=== PATIENT | male | born 1970 | race Caucasian/White ===

== ENCOUNTER → 2016-10-30 | Outpatient (CLI) | payer MEDICARE, MEDICAID | LOC: RAD 07:34 | PROVIDERS: ATTEND Specialist | DX: I26.90 Septic pulmonary embolism without acute cor pulmonale (principal); R91.1 Solitary pulmonary nodule; N28.0 Ischemia and infarction of kidney | CPT/HCPCS: 71260; 74160 ==

== ENCOUNTER 2016-12-24 04:47 | Emergency (ER) | payer MEDICARE, MEDICAID ==
[2016-12-24] MEDS ORDERED: DIPHENHYDRAMINE HCL 25 MG CAPSULE PO ONE ×2 (07:30→11:17)
--- NOTE | 2016-12-24 07:32 | ER Document Report ---
ED General - General Chief Complaint: Skin Problem Stated Complaint: RASH Mode of Arrival: Ambulatory Information source: Patient Notes: Patient presents to the emergency department with concerns of skin infection. Patient reports approximately one month ago he started itching. Patient has multiple insect bites to his bilateral arms. He reports last week when he was painting he hit his face on the side of the house with abrasion to right side of his nose. He reports he thought the area was healing but for the past three days it has become swollen, turned red and reports when he takes a shower the scab falls off and he notes pus coming out. He denies fever, vomiting, diarrhea but reports he feels dizzy at times and is very emotional, cries easily. He reports he has not taken any benadryl for his insect bites. He has been cleaning his facial abrasion with peroxide. TRAVEL OUTSIDE OF THE [place] IN LAST 30 DAYS: No - HPI Onset: Other - over a month- bilateral arms one week- facial abrasion Onset/Duration: Persistent Quality of pain: Achy Pain Level: 4 - itchy, facial pain Associated symptoms: None Exacerbated by: Denies Relieved by: Denies Similar symptoms previously: No Recently seen / treated by doctor: No - Related Data Allergies/Adverse Reactions: No Known Allergies Allergy (Verified 12/24/16 04:57) Past Medical History - General Information source: Patient - Social History Smoking Status: Former Smoker Cigarette use (# per day): No Frequency of alcohol use: None Drug Abuse: None 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 Schizophrenia in his son but no one else in the family. - Past Medical History Cardiac Medical History: Reports: Hx Hypertension - Hypertension is untreated, patient does not have a PCP., Hx Pulmonary Embolism - Septic Denies: Hx Congestive Heart Failure, Hx Heart Attack, Hx Hypercholesterolemia Pulmonary Medical History: Denies: Hx Asthma, Hx COPD Endocrine Medical History: Denies: Hx Diabetes Mellitus Type 1, Hx Diabetes Mellitus Type 2, Hx Hyperthyroidism, Hx Hypothyroidism Renal/ Medical History: Denies: Hx Peritoneal Dialysis GI Medical History: Denies: Hx Cirrhosis, Hx Gastroesophageal Reflux Disease, Hx Hepatitis Musculoskeltal Medical History: Reports Hx Arthritis Psychiatric Medical History: Denies: Hx Depression Infectious Medical History: Denies: Hx Hepatitis Past Surgical History: Reports: Hx Herniorrhaphy - Hernia repair and hydrocele repair at age of 9., Hx Orthopedic Surgery - back surgery 2006 Review of Systems - Review of Systems Notes: Review HPI for review of systems., All other systems negative Physical Exam - Vital signs Vitals: Temp Pulse Resp BP Pulse Ox 99 F 67 19 159/65 H 98 12/24/16 04:52 12/24/16 04:52 12/24/16 04:52 12/24/16 04:52 12/24/16 04:52 - Notes Notes: PHYSICAL EXAMINATION: GENERAL: Nontoxic looking HEAD: Atraumatic, normocephalic. EYES: Pupils equal round and reactive to light, extraocular movements intact, sclera anicteric, conjunctiva are normal. ENT: nares patent, oropharynx clear without exudates. Moist mucous membranes. NECK: Normal range of motion, supple without lymphadenopathy LUNGS: CTAB and equal. No wheezes rales or rhonchi. HEART: Regular rate and rhythm without murmurs ABDOMEN: Soft, no tenderness. No guarding, no rebound EXTREMITIES: Normal range of motion, no pitting edema. No cyanosis. NEUROLOGICAL: Cranial nerves grossly intact. Normal sensory/motor exams. PSYCH: Normal mood, normal affect. SKIN: Warm, Dry, erythema noted to right side of nare, cheek, periorbital, abrasion to right side nare, multiple flat erythemic areas to his forehead in various stages of healing, no oozing multiple flat insect bites to bilateral arms. some with scabs No macule/papules to his trunk or legs, palms, feet Course - Re-evaluation Re-evalutation: 12/24/16 10:29 no leukocytosis, CT superficial cellulitis. No drainage or oozing from sites- unable to obtain a wound culture. Suspect cellulitis staph infection from insect bites to his arms and spread. Pt will be treated with IV clindamycin discharged home with antibiotics, prednisone, pain medication. Discussed application of bactroban ointment with patient. Pt was also instructed on the importance of not itching the sites. Patient was instructed to keep his hands clean the sites clean. Patient was instructed to return to the emergency department for worsening condition and he verbalized understanding to all instructions - Vital Signs Vital signs: Temp Pulse Resp BP Pulse Ox 98.3 F 72 20 143/71 H 100 12/24/16 12:17 12/24/16 12:17 12/24/16 12:17 12/24/16 12:17 12/24/16 12:17 - Laboratory Result Diagrams: 12/24/16 08:15 12/24/16 08:15 Laboratory results interpreted by me: 12/24/16 12/24/16 12/24/16 08:15 08:15 08:40 Hgb 13.4 L RDW 15.6 H Sodium 146.0 H Urine Blood SMALL H - Diagnostic Test Radiology reviewed: Image reviewed, Reports reviewed - IMPRESSION: Superficial facial cellulitis. Discharge - Discharge Clinical Impression: CELLULITIS, Elevated blood pressure reading Insect bites Qualifiers: Encounter type: initial encounter Qualified Code(s): W57.XXXA - Bitten or stung by nonvenomous insect and other nonvenomous arthropods, initial encounter Condition: Stable Disposition: HOME, SELF-CARE Instructions: Cellulitis ([facility]), Cephalexin ([facility]), Trimethoprim-Sulfa ([facility]), Oral Narcotic Medication ([facility]), Use of Diphenhydramine, Steroid Medication, Insect Bites ([facility]), Manufacturing Analyst Additional Instructions: *You have been treated for cellulitis, insect bites, elevated blood pressure reading *Take medication as prescribed *Monitor your skin for signs of increasing infection such as increasing pain, redness, swelling, warmth *Keep your face clean *Apply bactroban to areas 3 times a day *Avoid itching, take benadryl as indicated *Follow up with a fuel yard operator for evaluation within one week, call for appointment *Follow up with your primary care provider within one week for recheck *If not looking any better within 2 days or looking worse return to the Emergency Department *Return to ED for signs of increasing infection, worsening condition, changes, needs Prescriptions: Cephalexin Monohydrate [Keflex 250 Mg Capsule] 250 mg PO QID #20 capsule Hydrocodone/Acetaminophen [Bryan 5-325 Tablet] 1 each PO QID #15 tablet Prednisone [Deltasone 10 mg Tablet] 10 mg PO ASDIR PRN #21 tablet PRN Reason: Sulfamethoxazole/Trimethoprim [Bactrim Ds Tablet] 1 each PO BID #20 tablet Forms: Elevated Blood Pressure Referrals: JONATHAN BENDER MD [Primary Care Provider] - Follow up in 1 week
[2016-12-24 08:53] LABS: ABSOLUTE EOSINOPHILS # (AUTO) 0.2 10^3/uL (0.0-0.6); ABSOLUTE LYMPHOCYTES (AUTO) 2.5 10^3/uL (0.5-4.7); ABSOLUTE MONOCYTES (AUTO) 0.4 10^3/uL (0.1-1.4); ABSOLUTE NEUT (AUTO) 4.8 10^3/uL (1.7-8.2); BASOPHILS % (AUTO) 0.4 % (0-2); HEMATOCRIT 38.4 % (37.9-51.0); HEMOGLOBIN 13.4 g/dL (13.5-17.0); HGB HCT DIFFERENCE 1.8; LYMPHOCYTES % (AUTO) 31.5 % (13-45); MEAN CORPUSCULAR HGB CONC 34.8 g/dL (32.0-36.0); MEAN CORPUSCULAR VOLUME 80 fl (80-97); MONOCYTES % (AUTO) 5.3 % (3-13); RED BLOOD COUNT 4.78 10^6/uL (4.35-5.55); RED CELL DISTRIBUTION WIDTH 15.6 % (11.5-14.0); SEGMENTED NEUTROPHILS % (AUTO) 60.8 % (42-78); WHITE BLOOD COUNT 7.9 10^3/uL (4.0-10.5)
[2016-12-24 09:12] LABS: ALANINE AMINOTRANSFERASE 37 U/L (21-72); ALKALINE PHOSPHATASE 64 U/L (38-126); ANION GAP 14 (5-19); ASPARTATE AMINO TRANSFERASE 22 U/L (17-59); BILIRUBIN,DIRECT 0.1 mg/dL (0.0-0.4); BILIRUBIN,TOTAL 0.7 mg/dL (0.2-1.3); BLOOD UREA NITROGEN 12 mg/dL (7-20); CALCIUM 9.9 mg/dL (8.4-10.2); CARBON DIOXIDE 28 mmol/L (22-30); CHLORIDE 104 mmol/L (98-107); CREATININE RESULT 0.65 mg/dL (0.52-1.25); GLUCOSE 102 mg/dL (75-110); POTASSIUM 4.2 mmol/L (3.6-5.0); TOTAL PROTEIN 7.6 g/dL (6.3-8.2)
[2016-12-24 09:46] LABS: APPEARANCE,URINE CLEAR; BILIRUBIN,URINE NEGATIVE (NEGATIVE); GLUCOSE, URINE NEGATIVE (NEGATIVE); KETONES,URINE NEGATIVE (NEGATIVE); LEUKOCYTE ESTERASE,URINE NEGATIVE (NEGATIVE); NITRITE,URINE NEGATIVE (NEGATIVE); PROTEIN,URINE NEGATIVE (NEGATIVE); URINE SPECIFIC GRAVITY 1.012; UROBILINOGEN,URINE NEGATIVE mg/dL (<2.0)
[2016-12-24] MEDS ORDERED: CLINDAMYCIN 600 MG/D5W RTU 50 ML IV ONE (10:26)
[2016-12-24] MEDS ORDERED: MUPIROCIN 2% OINTMENT 22 GM TP ONE (11:25)
[2016-12-24 12:20] VITALS: BP 143/71
== END 2016-12-24 12:17 | disposition home or self-care (01) ==
LOC: ER 04:47
DX: S00.31XA Abrasion of nose, initial encounter (principal); L03.211 Cellulitis of face; W22.09XA Striking against other stationary object, initial encounter; Y93.H9 Activity, other involving exterior property and land maintenance, building and construction; Y92.009 Unspecified place in unspecified non-institutional (private) residence as the place of occurrence of the external cause; S40.862A Insect bite (nonvenomous) of left upper arm, initial encounter; S40.861A Insect bite (nonvenomous) of right upper arm, initial encounter; W57.XXXA Bitten or stung by nonvenomous insect and other nonvenomous arthropods, initial encounter; R42 Dizziness and giddiness; I10 Essential (primary) hypertension; Z86.711 Personal history of pulmonary embolism
CPT/HCPCS: 99284; 96365; 36415; 87040; 87070; 87205; 85025; 87077; 80053; 81001; 87186; 70487; A9270 ×2; J3490

== ENCOUNTER 2016-12-28 11:04 | Emergency (ER) | payer MEDICARE, MEDICAID ==
[2016-12-28 11:14] VITALS: BP 133/74
[2016-12-28 12:24] LABS: ABSOLUTE LYMPHOCYTES (AUTO) 2.4 10^3/uL (0.5-4.7); ABSOLUTE MONOCYTES (AUTO) 0.3 10^3/uL (0.1-1.4); ABSOLUTE NEUT (AUTO) 6.9 10^3/uL (1.7-8.2); BASOPHILS % (AUTO) 0.3 % (0-2); EOSINOPHILS % (AUTO) 0.4 % (0-6); HEMATOCRIT 37.7 % (37.9-51.0); HGB HCT DIFFERENCE 1.3; LYMPHOCYTES % (AUTO) 24.6 % (13-45); MEAN CORPUSCULAR HEMOGLOBIN 27.9 pg (27.0-33.4); MEAN CORPUSCULAR HGB CONC 34.6 g/dL (32.0-36.0); MEAN CORPUSCULAR VOLUME 81 fl (80-97); MONOCYTES % (AUTO) 3.3 % (3-13); RED BLOOD COUNT 4.67 10^6/uL (4.35-5.55); RED CELL DISTRIBUTION WIDTH 15.9 % (11.5-14.0); SEGMENTED NEUTROPHILS % (AUTO) 71.4 % (42-78); WHITE BLOOD COUNT 9.7 10^3/uL (4.0-10.5)
--- NOTE | 2016-12-28 13:02 | ER Document Report ---
ED General - General Chief Complaint: Abnormal Lab Results Stated Complaint: ABNORMAL LABS TRAVEL OUTSIDE OF THE [place] IN LAST 30 DAYS: No - HPI Patient complains to provider of: positive blood culture Notes: Patient coming in for days ago for saline stools face of blood cultures drawn showing one bottle positive. Patient however has not returned 4 days later patient otherwise states she's feeling better since the lastis getting better no fevers or chills no night sweats. - Related Data Allergies/Adverse Reactions: No Known Allergies Allergy (Verified 12/28/16 11:10) Past Medical History - Social History Smoking Status: Unknown if Ever Smoked Family History: CVA, Malignancy - Lung cancer and leukemia, Other - Alcoholism, dementia. Schizophrenia in his son but no one else in the family. Patient has suicidal ideation: No Patient has homicidal ideation: No - Past Medical History Cardiac Medical History: Reports: Hx Hypertension - Hypertension is untreated, patient does not have a PCP., Hx Pulmonary Embolism - Septic Denies: Hx Congestive Heart Failure, Hx Heart Attack, Hx Hypercholesterolemia Pulmonary Medical History: Denies: Hx Asthma, Hx COPD Endocrine Medical History: Denies: Hx Diabetes Mellitus Type 1, Hx Diabetes Mellitus Type 2, Hx Hyperthyroidism, Hx Hypothyroidism Renal/ Medical History: Denies: Hx Peritoneal Dialysis GI Medical History: Denies: Hx Cirrhosis, Hx Gastroesophageal Reflux Disease, Hx Hepatitis Musculoskeltal Medical History: Reports Hx Arthritis Psychiatric Medical History: Denies: Hx Depression Infectious Medical History: Denies: Hx Hepatitis Past Surgical History: Reports: Hx Herniorrhaphy - Hernia repair and hydrocele repair at age of 9., Hx Orthopedic Surgery - back surgery 2006 - Immunizations Hx Diphtheria, Pertussis, Tetanus Vaccination: No Review of Systems - Review of Systems Constitutional: Other - Return for lab results EENT: No symptoms reported Cardiovascular: No symptoms reported Respiratory: No symptoms reported Gastrointestinal: No symptoms reported Genitourinary: No symptoms reported Male Genitourinary: No symptoms reported Musculoskeletal: No symptoms reported Skin: No symptoms reported Hematologic/Lymphatic: No symptoms reported Neurological/Psychological: No symptoms reported Physical Exam - Vital signs Vitals: Temp Pulse Resp BP Pulse Ox 97.8 F 61 18 133/74 H 98 12/28/16 11:12 12/28/16 11:12 12/28/16 11:12 12/28/16 11:12 12/28/16 11:12 Interpretation: Normal - General General appearance: Appears well, Alert - HEENT Head: Normocephalic, Atraumatic Eyes: Normal Pupils: PERRL Notes: Patient with erythema to the right bridge and nose states has improved consistent with possible infection. - Respiratory Respiratory status: No respiratory distress Chest status: Nontender Breath sounds: Normal Chest palpation: Normal - Cardiovascular Rhythm: Regular Heart sounds: Normal auscultation Murmur: No - Abdominal Inspection: Normal Distension: No distension Bowel sounds: Normal Tenderness: Nontender Organomegaly: No organomegaly - Back Back: Normal, Nontender - Extremities General upper extremity: Normal inspection, Nontender, Normal color, Normal ROM , Normal temperature General lower extremity: Normal inspection, Nontender, Normal color, Normal ROM , Normal temperature, Normal weight bearing. No: Minoo's sign - Neurological Neuro grossly intact: Yes Cognition: Normal Orientation: AAOx4 [place] Coma Scale Eye Opening: Spontaneous Benji Coma Scale Verbal: Oriented [place] Coma Scale Motor: Obeys Commands Benji Coma Scale Total: 15 Speech: Normal Motor strength normal: LUE, RUE, LLE, RLE Sensory: Normal - Psychological Associated symptoms: Normal affect, Normal mood - Skin Skin Temperature: Warm Skin Moisture: Dry Skin Color: Normal Course - Re-evaluation Re-evalutation: 12/28/16 13:29 Patient's blood culture showing corynebactrim species. However patient has no signs or symptoms of bacteremia this time. CBC is negative. We will draw another set of blood cultures patient was encouraged to continue his antibiotics as it did grow out MRSA on his swab. The patient stating that the area is improving filled patient safe for discharge home. 12/28/16 13:30 - Vital Signs Vital signs: Temp Pulse Resp BP Pulse Ox 97.8 F 61 18 133/74 H 98 12/28/16 11:12 12/28/16 11:12 12/28/16 11:12 12/28/16 11:12 12/28/16 11:12 - Laboratory Result Diagrams: 12/28/16 12:00 Laboratory results interpreted by me: 12/28/16 12:00 Hgb 13.0 L Hct 37.7 L RDW 15.9 H Discharge - Discharge Clinical Impression: Cellulitis Qualifiers: Site of cellulitis: face Qualified Code(s): L03.211 - Cellulitis of face Instructions: Cellulitis ([facility]) Additional Instructions: Please continue your antibiotics as previously prescribed. Return to the ER if symptoms worsen. At this time reviewing your blood cultures I did not see any signs of bacteremia or a bloodstream infection I believe your result from one bottle out of 2 is just contamination. As that you showed no signs of severe infection. We did draw a blood count morning today which is normal. We will wait to see what her second blood culture results showed that do not see any reason to keep you in the emergency room or the hospital today. Follow-up with your primary care physician He may take the medication as prescribed for sleep Prescriptions: Doxylamine Succinate [Sleep Aid] 25 mg PO QHS #14 tablet Forms: Return to Work
== END 2016-12-28 13:10 | disposition home or self-care (01) ==
LOC: ER 11:04
DX: L03.211 Cellulitis of face (principal); R88.8 Abnormal findings in other body fluids and substances
CPT/HCPCS: 36415; 85025; 99283

== ENCOUNTER 2017-02-05 11:37 | Emergency (ER) | payer MEDICARE, MEDICAID ==
--- NOTE | 2017-02-05 13:01 | ER Document Report ---
ED Skin Rash/Insect Bite/Abscs - General Mode of Arrival: Ambulatory Information source: Patient TRAVEL OUTSIDE OF THE [place] IN LAST 30 DAYS: No <ZOE MEYERS - Last Filed: 02/07/17 16:32> <CHELY DIAZ - Last Filed: 02/10/17 06:12> - General Chief Complaint: Abscess Stated Complaint: POSSIBLE ABSCESS UNDER RIGHT ARM Time Seen by Provider: 02/05/17 12:58 Notes: 46 yo male with possible abscess under right axilla, no fever, hx absces in past and MRSA (ZOE MEYERS) - Related Data Allergies/Adverse Reactions: No Known Allergies Allergy (Verified 02/05/17 11:42) Past Medical History - General Information source: Patient - Social History Smoking Status: Current Every Day Smoker Chew tobacco use (# tins/day): No Frequency of alcohol use: None Drug Abuse: Marijuana Lives with: Family Family History: CVA, Malignancy - Lung cancer and leukemia, Other - Alcoholism, dementia. Schizophrenia in his son but no one else in the family. Patient has suicidal ideation: No Patient has homicidal ideation: No - Past Medical History Cardiac Medical History: Reports: Hx Hypertension - Hypertension is untreated, patient does not have a PCP., Hx Pulmonary Embolism - Septic Renal/ Medical History: Denies: Hx Peritoneal Dialysis Musculoskeltal Medical History: Reports Hx Arthritis Psychiatric Medical History: Reports: Hx Depression Infectious Medical History: Denies: Hx Hepatitis Past Surgical History: Reports: Hx Herniorrhaphy - Hernia repair and hydrocele repair at age of 9., Hx Orthopedic Surgery - back surgery 2006 - Immunizations Hx Diphtheria, Pertussis, Tetanus Vaccination: No <ZOE MEYERS - Last Filed: 02/07/17 16:32> Review of Systems - Review of Systems Constitutional: No symptoms reported EENT: No symptoms reported Cardiovascular: No symptoms reported Respiratory: No symptoms reported Gastrointestinal: No symptoms reported Genitourinary: No symptoms reported Male Genitourinary: No symptoms reported Musculoskeletal: No symptoms reported Skin: See HPI Hematologic/Lymphatic: No symptoms reported Neurological/Psychological: No symptoms reported <ZOE MEYERS - Last Filed: 02/07/17 16:32> Physical Exam - Vital signs Interpretation: Normal - General General appearance: Appears well, Alert - HEENT Head: Normocephalic, Atraumatic Eyes: Normal Pupils: PERRL - Respiratory Respiratory status: No respiratory distress Chest status: Nontender Breath sounds: Normal Chest palpation: Normal - Cardiovascular Rhythm: Regular Heart sounds: Normal auscultation Murmur: No - Abdominal Inspection: Normal Distension: No distension Bowel sounds: Normal Tenderness: Nontender Organomegaly: No organomegaly - Back Back: Normal, Nontender - Extremities General upper extremity: Normal inspection, Nontender, Normal color, Normal ROM , Normal temperature General lower extremity: Normal inspection, Nontender, Normal color, Normal ROM , Normal temperature, Normal weight bearing. No: Minoo's sign - Neurological Neuro grossly intact: Yes Cognition: Normal Orientation: AAOx4 Benji Coma Scale Eye Opening: Spontaneous [place] Coma Scale Verbal: Oriented [place] Coma Scale Motor: Obeys Commands Benji Coma Scale Total: 15 Speech: Normal Motor strength normal: LUE, RUE, LLE, RLE Sensory: Normal - Psychological Associated symptoms: Normal affect, Normal mood - Skin Skin Temperature: Warm Skin Moisture: Dry Skin Color: Normal Skin irregularity: Abscess - multi leasions, suspect lymph nodes also, right axilla <ZOE MEYERS - Last Filed: 02/07/17 16:32> <CHELY DIAZ - Last Filed: 02/10/17 06:12> - Vital signs Vitals: Temp Pulse Resp BP Pulse Ox 98.5 F 67 19 140/67 H 100 02/05/17 11:42 02/05/17 11:42 02/05/17 11:42 02/05/17 11:42 02/05/17 11:42 - HEENT Notes: right nose with chronic (more than 1 year) bleeding lesion. looke with magnifier and it has rolled borders, suspect basal cell cancer (ZOE MEYERS) Course - Laboratory Result Diagrams: 02/05/17 14:10 02/05/17 14:10 <ZOE MEYERS - Last Filed: 02/07/17 16:32> - Laboratory Result Diagrams: 02/05/17 14:10 02/05/17 14:10 <CHELY DIAZ - Last Filed: 02/10/17 06:12> - Re-evaluation Re-evalutation: 02/10/17 06:11 I did personally seen and examined this patient in conjunction with Zoe Melling MEMBER SERVICE REPRESENTATIVE. Patient has had multiple recurrent abscesses in this area, currently 2 areas of erythema and tenderness and fluctuance in the right axilla , agree with plan to incise and drain, the [place] drain in place and start oral antibiotics. (CHELY DIAZ) - Vital Signs Vital signs: Temp Pulse Resp BP Pulse Ox 98.5 F 81 17 130/74 H 98 02/05/17 11:42 02/05/17 17:36 02/05/17 17:36 02/05/17 17:36 02/05/17 17:36 - Laboratory Laboratory results interpreted by me: 02/05/17 02/05/17 14:10 14:10 RBC 4.15 L Hgb 12.1 L Hct 34.9 L RDW 14.4 H Eosinophils % 6.2 H Sodium 145.9 H Procedures - Incision and Drainage Right Arm Time completed: 17:09 Type: Simple Anesthetic type: 1% Lidocaine mL's of anesthetic: 8 Blade size: 11 I&D procedure: Mehnaz drain placed - in 2 smaller incision where there was pus , the larger central incision did not have any pus. Incision Method: Incision made by scalpel Amount/type of drainage: small pus, blood, right axilla 3 incisions <ZOE MEYERS - Last Filed: 02/07/17 16:32> Discharge <ZOE MEYERS - Last Filed: 02/07/17 16:32> <CHELY DIAZ - Last Filed: 02/10/17 06:12> - Discharge Clinical Impression: nose lesion probable basal cell cancer, Abscess of right axilla, Adenopathy, Folliculitis Condition: Good Disposition: HOME, SELF-CARE Instructions: Abscess ([facility]), Post Incision and Drainage, Folliculitis ([facility]), Lymphadenopathy ([facility]) Additional Instructions: Nasal Bactroban small amount each nostril twice a day for 5 days When the lesions are small but Bactroban on it 3 times a day to kill the bacteria Take the antibiotics Warm compress See the general surgeon dr. hinojosa if this persists in the right axilla Very important that she see the fur mixer operator for this possible basal cell carcinoma of the right nose, dr. ybarra Please complete the patient satisfaction survey if you get one, and return it.. If you do not receive a survey, then you can go to the [facility] website, [email or web address] and place your comments about your very good care. Thank you very much. It was a pleasure being your medical provider today. Prescriptions: Ibuprofen [Motrin 800 mg Tablet] 800 mg PO Q8HP PRN #30 tablet PRN Reason: Clindamycin HCl [Cleocin 150 mg Capsule] 300 mg PO TID #42 capsule Mupirocin [Bactroban 2% Ointment 22 gm] 1 applic TP TID #22 gm Referrals: PORTIA MARRERO MD [Primary Care Provider] - Follow up as needed GUY YBARRA DO [ACTIVE STAFF] - Follow up tomorrow (call for appointment next week) JONNY HINOJOSA MD [ACTIVE STAFF] - Follow up as needed
[2017-02-05] MEDS ORDERED: CLINDAMYCIN 600 MG/D5W RTU 50 ML IV ONE (13:11)
[2017-02-05] MEDS ORDERED: IBUPROFEN 800 MG TABLET PO ONE (13:11)
[2017-02-05 14:24] LABS: ABSOLUTE BASOPHILS # (AUTO) 0.1 10^3/uL (0.0-0.2); ABSOLUTE EOSINOPHILS # (AUTO) 0.4 10^3/uL (0.0-0.6); ABSOLUTE LYMPHOCYTES (AUTO) 2.8 10^3/uL (0.5-4.7); ABSOLUTE MONOCYTES (AUTO) 0.3 10^3/uL (0.1-1.4); ABSOLUTE NEUT (AUTO) 3.2 10^3/uL (1.7-8.2); BASOPHILS % (AUTO) 0.8 % (0-2); EOSINOPHILS % (AUTO) 6.2 % (0-6); HEMATOCRIT 34.9 % (37.9-51.0); HEMOGLOBIN 12.1 g/dL (13.5-17.0); HGB HCT DIFFERENCE 1.4; LYMPHOCYTES % (AUTO) 41.5 % (13-45); MEAN CORPUSCULAR HEMOGLOBIN 29.1 pg (27.0-33.4); MEAN CORPUSCULAR HGB CONC 34.6 g/dL (32.0-36.0); MEAN CORPUSCULAR VOLUME 84 fl (80-97); MONOCYTES % (AUTO) 4.4 % (3-13); RED BLOOD COUNT 4.15 10^6/uL (4.35-5.55); RED CELL DISTRIBUTION WIDTH 14.4 % (11.5-14.0); SEGMENTED NEUTROPHILS % (AUTO) 47.1 % (42-78); WHITE BLOOD COUNT 6.7 10^3/uL (4.0-10.5)
[2017-02-05 14:45] LABS: ALANINE AMINOTRANSFERASE 26 U/L (21-72); ALBUMIN 3.9 g/dL (3.5-5.0); ALKALINE PHOSPHATASE 57 U/L (38-126); ANION GAP 12 (5-19); ASPARTATE AMINO TRANSFERASE 37 U/L (17-59); BILIRUBIN,DIRECT 0.4 mg/dL (0.0-0.4); BILIRUBIN,TOTAL 0.5 mg/dL (0.2-1.3); BLOOD UREA NITROGEN 11 mg/dL (7-20); CALCIUM 9.2 mg/dL (8.4-10.2); CARBON DIOXIDE 27 mmol/L (22-30); CHLORIDE 107 mmol/L (98-107); CREATININE RESULT 0.81 mg/dL (0.52-1.25); GLUCOSE 90 mg/dL (75-110); POTASSIUM 3.6 mmol/L (3.6-5.0); SODIUM 145.9 mmol/L (137-145); TOTAL PROTEIN 7.1 g/dL (6.3-8.2)
[2017-02-05] MEDS ORDERED: LIDOCAINE 4%/TETRACAINE 0.5%/EPI 0.18% 5 ML TOPICAL SOLN TOP ONE (15:59)
[2017-02-05] MEDS ORDERED: LIDOCAINE 1% INJ (10 MG/ML) 10 ML MDV INJ ONE (17:10)
[2017-02-05] MEDS ORDERED: LIDOCAINE 1% INJ-PF (10 MG/ML) 30 ML SDV INJ ONE (17:11)
[2017-02-05] MEDS ORDERED: LIDOCAINE 1% INJ-PF (10 MG/ML) 30 ML SDV ONE (17:14)
[2017-02-05 17:37] VITALS: BP 130/74
== END 2017-02-05 17:36 | disposition home or self-care (01) ==
LOC: ER 11:37
PROC: 0H9BXZZ Drainage of Right Upper Arm Skin, External Approach (ICD-10-PCS; principal; 2017-02-05)
DX: L02.411 Cutaneous abscess of right axilla (principal); L98.9 Disorder of the skin and subcutaneous tissue, unspecified; L73.9 Follicular disorder, unspecified; R59.9 Enlarged lymph nodes, unspecified; F17.200 Nicotine dependence, unspecified, uncomplicated; Z86.14 Personal history of Methicillin resistant Staphylococcus aureus infection; Z86.711 Personal history of pulmonary embolism
CPT/HCPCS: 99284; 36415; 85025; 80053; 76881; 10060; A9270; J3490

== ENCOUNTER 2017-05-17 10:24 | Emergency (ER) | payer MEDICARE, MEDICAID ==
[2017-05-17 10:40] VITALS: BP 139/72
[2017-05-17] MEDS ORDERED: LIDOCAINE 1% INJ-PF (10 MG/ML) 30 ML SDV INJ ONE (10:43)
--- NOTE | 2017-05-17 10:48 | ER Document Report ---
ED General - General Chief Complaint: Skin Problem Stated Complaint: POSSIBLE SPIDER BITE Time Seen by Provider: 05/17/17 10:41 Mode of Arrival: Ambulatory Information source: Patient Notes: 46-year-old male presents with concerns for spider bites to the right anterior thigh. Patient notes symptoms have been ongoing now for 2-3 days initially started as a small pimple but is now gotten larger, patient was able to squeeze pus out of it. Patient does not remember seeing a spider bite him. He admits to fevers admits area of redness Patient denies any previous similar episodes TRAVEL OUTSIDE OF THE [place] IN LAST 30 DAYS: No - HPI Onset: Other Onset/Duration: Persistent Quality of pain: Sharp Severity: Moderate Pain Level: 3 Associated symptoms: None Exacerbated by: Movement, Other - Touch Relieved by: Denies Similar symptoms previously: No Recently seen / treated by doctor: No - Related Data Allergies/Adverse Reactions: No Known Allergies Allergy (Verified 05/17/17 10:37) Past Medical History - Social History Smoking Status: Current Every Day Smoker Cigarette use (# per day): Yes Chew tobacco use (# tins/day): No Smoking Education Provided: No Frequency of alcohol use: Occasional Drug Abuse: None Family History: CVA, Malignancy - Lung cancer and leukemia, Other - Alcoholism, dementia. Schizophrenia in his son but no one else in the family. - Past Medical History Cardiac Medical History: Reports: Hx Hypertension - Hypertension is untreated, patient does not have a PCP., Hx Pulmonary Embolism - Septic Denies: Hx Congestive Heart Failure, Hx Heart Attack, Hx Hypercholesterolemia Pulmonary Medical History: Denies: Hx Asthma, Hx COPD Endocrine Medical History: Denies: Hx Diabetes Mellitus Type 1, Hx Diabetes Mellitus Type 2, Hx Hyperthyroidism, Hx Hypothyroidism Renal/ Medical History: Denies: Hx Peritoneal Dialysis GI Medical History: Denies: Hx Cirrhosis, Hx Gastroesophageal Reflux Disease, Hx Hepatitis Musculoskeltal Medical History: Reports Hx Arthritis Psychiatric Medical History: Reports: Hx Depression Infectious Medical History: Denies: Hx Hepatitis Past Surgical History: Reports: Hx Herniorrhaphy - Hernia repair and hydrocele repair at age of 9., Hx Orthopedic Surgery - back surgery 2006 - Immunizations Hx Diphtheria, Pertussis, Tetanus Vaccination: No Review of Systems - Review of Systems Notes: REVIEW OF SYSTEMS: CONSTITUTIONAL : Denies fever, chills, or sweats. Denies recent illness. EENT: Denies eye, ear, throat, or mouth pain or symptoms. Denies nasal or sinus congestion or discharge. Denies throat, tongue, or mouth swelling or difficulty swallowing. CARDIOVASCULAR: Denies chest pain. Denies palpitations or racing or irregular heart beat. Denies ankle edema. RESPIRATORY: Denies cough, cold, or chest congestion. Denies shortness of breath, difficulty breathing, or wheezing. GASTROINTESTINAL: Denies abdominal pain or distention. Denies nausea, vomiting , or diarrhea. Denies blood in vomitus, stools, or per rectum. Denies black, tarry stools. Denies constipation. GENITOURINARY: Denies difficulty urinating, painful urination, burning, frequency, blood in urine, or discharge. MUSCULOSKELETAL: Denies back or neck pain or stiffness. Denies joint pain or swelling. SKIN: Admits to right anterior thigh pain HEMATOLOGIC : Denies easy bruising or bleeding. LYMPHATIC: Denies swollen, enlarged glands. NEUROLOGICAL: Denies confusion or altered mental status. Denies passing out or loss of consciousness. Denies dizziness or lightheadedness. Denies headache. Denies weakness or paralysis or loss of use of either side. Denies problems with gait or speech. Denies sensory loss, numbness, or tingling. Denies seizures. PSYCHIATRIC: Denies anxiety or stress. Denies depression, suicidal ideation, or homicidal ideation. ALL OTHER SYSTEMS REVIEWED AND NEGATIVE. Dictation was performed using [employer] voice recognition software PHYSICAL EXAMINATION: GENERAL: Well-appearing, well-nourished and in no acute distress. HEAD: Atraumatic, normocephalic. EYES: Pupils equal round and reactive to light, extraocular movements intact, sclera anicteric, conjunctiva are normal. ENT: Nares patent, oropharynx clear without exudates. Moist mucous membranes. NECK: Normal range of motion, supple without lymphadenopathy LUNGS: Breath sounds clear to auscultation bilaterally and equal. No wheezes rales or rhonchi. HEART: Regular rate and rhythm without murmurs ABDOMEN: Soft, nontender, nondistended abdomen. No guarding, no rebound. No masses appreciated. Musculoskeletal: Normal range of motion, no pitting or edema. No cyanosis. NEUROLOGICAL: Cranial nerves grossly intact. Normal speech, normal gait. Normal sensory, motor exams PSYCH: Normal mood, normal affect. SKIN: 3x3 cm fluctuance of the right anterior thigh with area of cellulitis 5x8 cm Physical Exam - Vital signs Vitals: Temp Pulse Resp BP Pulse Ox 98.7 F 61 18 139/72 H 98 05/17/17 10:37 05/17/17 10:37 05/17/17 10:37 05/17/17 10:37 05/17/17 10:37 Course - Re-evaluation Re-evalutation: 05/17/17 10:45 Patient has obvious abscess, he will be incised and drained, patient will be started on antibiotics After performing a Medical Screening Examination, I estimate there is LOW risk for OPEN FRACTURE, COMPARTMENT SYNDROME, TENDON RUPTURE, ACUTE NEUROVASCULAR INJURY, or RETAINED FOREIGN BODY, thus I consider the discharge disposition reasonable. Also, there is no evidence or peritonitis, sepsis, or toxicity. I have reevaluated this patient multiple times and no significant life threatening changes are noted. The patient and I have discussed the diagnosis and risks, and we agree with discharging home with close follow-up with the understanding that symptoms and presentations can change. We also discussed returning to the Emergency Department immediately if new or worsening symptoms occur. We have discussed the symptoms which are most concerning (e.g., changing or worsening pain, fever, numbness, weakness, cool or painful digits) that necessitate immediate return. - Vital Signs Vital signs: Temp Pulse Resp BP Pulse Ox 98.7 F 61 18 139/72 H 98 05/17/17 10:37 05/17/17 10:37 05/17/17 10:37 05/17/17 10:37 05/17/17 10:37 Procedures - Incision and Drainage Right Anterior Thigh Time completed: 10:55 Type: Simple, Single Anesthetic type: 1% Lidocaine mL's of anesthetic: 10 Blade size: 11 I&D procedure: Betadine prep applied, Sterile dressing applied Incision Method: Incision made by scalpel Amount/type of drainage: moderate amount of blood with pus Discharge - Discharge Clinical Impression: Abscess or cellulitis of thigh Leg pain, anterior Qualifiers: Laterality: right Qualified Code(s): M79.604 - Pain in right leg Condition: Stable Disposition: HOME, SELF-CARE Instructions: Abscess ([facility]), Post Incision and Drainage Additional Instructions: Follow-up in 48 hours for reevaluation or return immediately if there is any worsening symptoms or any other concerns Prescriptions: Cephalexin Monohydrate [Keflex 500 mg Capsule] 500 mg PO QID #40 capsule Hydrocodone/Acetaminophen [[place] 5-325 mg Tablet] 1 tab PO Q6 #14 tablet Sulfamethoxazole/Trimethoprim [Bactrim Ds Tablet] 2 each PO BID #40 tablet
== END 2017-05-17 11:10 | disposition home or self-care (01) ==
LOC: ER 10:24
PROC: 0H9HXZZ Drainage of Right Upper Leg Skin, External Approach (ICD-10-PCS; principal; 2017-05-17)
DX: L02.415 Cutaneous abscess of right lower limb (principal); L03.115 Cellulitis of right lower limb; I10 Essential (primary) hypertension; F17.210 Nicotine dependence, cigarettes, uncomplicated
CPT/HCPCS: 10060; 99283; 87070; 87205; 87075; 87077; 87186; J3490

== ENCOUNTER → 2017-07-18 | Outpatient (CLI) | payer MEDICARE, MEDICAID ==
[2017-07-18 09:27] LABS: ABSOLUTE BASOPHILS # (AUTO) 0.1 10^3/uL (0.0-0.2); ABSOLUTE EOSINOPHILS # (AUTO) 0.1 10^3/uL (0.0-0.6); ABSOLUTE LYMPHOCYTES (AUTO) 2.2 10^3/uL (0.5-4.7); ABSOLUTE MONOCYTES (AUTO) 0.3 10^3/uL (0.1-1.4); ABSOLUTE NEUT (AUTO) 3.6 10^3/uL (1.7-8.2); BASOPHILS % (AUTO) 0.8 % (0-2); EOSINOPHILS % (AUTO) 2.2 % (0-6); HEMATOCRIT 38.5 % (37.9-51.0); HEMOGLOBIN 13.1 g/dL (13.5-17.0); HGB HCT DIFFERENCE 0.8; LYMPHOCYTES % (AUTO) 34.6 % (13-45); MEAN CORPUSCULAR HEMOGLOBIN 25.8 pg (27.0-33.4); MEAN CORPUSCULAR HGB CONC 34.1 g/dL (32.0-36.0); MEAN CORPUSCULAR VOLUME 76 fl (80-97); MONOCYTES % (AUTO) 4.9 % (3-13); RED BLOOD COUNT 5.08 10^6/uL (4.35-5.55); RED CELL DISTRIBUTION WIDTH 15.5 % (11.5-14.0); SEGMENTED NEUTROPHILS % (AUTO) 57.5 % (42-78); WHITE BLOOD COUNT 6.3 10^3/uL (4.0-10.5)
[2017-07-18 09:54] LABS: ALANINE AMINOTRANSFERASE 32 U/L (21-72); ALBUMIN 4.9 g/dL (3.5-5.0); ALKALINE PHOSPHATASE 71 U/L (38-126); ANION GAP 14 (5-19); ASPARTATE AMINO TRANSFERASE 20 U/L (17-59); BILIRUBIN,DIRECT 0.4 mg/dL (0.0-0.4); BILIRUBIN,TOTAL 0.6 mg/dL (0.2-1.3); BLOOD UREA NITROGEN 9 mg/dL (7-20); CALCIUM 9.9 mg/dL (8.4-10.2); CARBON DIOXIDE 28 mmol/L (22-30); CHLORIDE 102 mmol/L (98-107); CHOLESTEROL 191.07 mg/dL (0-200); CREATININE RESULT 0.82 mg/dL (0.52-1.25); Direct HDL 42 mg/dL (>40); GLUCOSE 100 mg/dL (75-110); POTASSIUM 4.9 mmol/L (3.6-5.0); SODIUM 143.5 mmol/L (137-145); TOTAL PROTEIN 7.6 g/dL (6.3-8.2); TRIGLYCERIDES 237 mg/dL (<150)
[2017-07-18 10:05] LABS: DIRECT LDL 110 mg/dL (<100)
[2017-07-18 10:08] LABS: VLDL CHOLESTEROL 47.4 mg/dL (10-31)
== END ==
LOC: OD 08:52
PROVIDERS: ATTEND Family Medicine Geriatric Medicine
DX: I10 Essential (primary) hypertension (principal); I26.99 Other pulmonary embolism without acute cor pulmonale; E66.9 Obesity, unspecified; Z79.899 Other long term (current) drug therapy
CPT/HCPCS: 36415; 80053; 80061; 84443; 85025

== ENCOUNTER → 2017-08-12 | Outpatient (CLI) | payer MEDICARE, MEDICAID ==
[2017-08-12 15:23] LABS: ABSOLUTE EOSINOPHILS # (AUTO) 0.3 10^3/uL (0.0-0.6); ABSOLUTE LYMPHOCYTES (AUTO) 3.3 10^3/uL (0.5-4.7); ABSOLUTE MONOCYTES (AUTO) 0.4 10^3/uL (0.1-1.4); ABSOLUTE NEUT (AUTO) 4.7 10^3/uL (1.7-8.2); BASOPHILS % (AUTO) 0.6 % (0-2); EOSINOPHILS % (AUTO) 3.2 % (0-6); HEMATOCRIT 36.3 % (37.9-51.0); HEMOGLOBIN 12.3 g/dL (13.5-17.0); HGB HCT DIFFERENCE 0.6; LYMPHOCYTES % (AUTO) 37.6 % (13-45); MEAN CORPUSCULAR HEMOGLOBIN 24.9 pg (27.0-33.4); MEAN CORPUSCULAR HGB CONC 33.9 g/dL (32.0-36.0); MEAN CORPUSCULAR VOLUME 74 fl (80-97); MONOCYTES % (AUTO) 5.1 % (3-13); RED BLOOD COUNT 4.94 10^6/uL (4.35-5.55); RED CELL DISTRIBUTION WIDTH 16.6 % (11.5-14.0); SEGMENTED NEUTROPHILS % (AUTO) 53.5 % (42-78); WHITE BLOOD COUNT 8.8 10^3/uL (4.0-10.5)
[2017-08-12 16:18] LABS: FERRITIN 8.89 ng/mL (17.9-464.0)
== END ==
LOC: OD 14:51 → MERGE 14:51
PROVIDERS: ATTEND Family Medicine Geriatric Medicine
DX: D64.9 Anemia, unspecified (principal); Z79.899 Other long term (current) drug therapy
CPT/HCPCS: 36415; 82728; 83540; 83550; 84466; 85025

== ENCOUNTER 2017-08-22 10:26 | Emergency (ER) | payer MEDICARE, MEDICAID ==
[2017-08-22 10:40] VITALS: BP 129/72
[2017-08-22] MEDS ORDERED: TETRACAINE HCL 0.5% OPH SOLN 2 ML OD ONE (11:09)
[2017-08-22] MEDS ORDERED: PREDNISONE 20 MG TABLET PO ONE (11:19)
[2017-08-22] MEDS ORDERED: ACYCLOVIR 200 MG CAPSULE PO ONE (11:19)
--- NOTE | 2017-08-22 11:21 | ER Document Report ---
ED General - General Chief Complaint: Skin Problem Stated Complaint: FACIAL PAIN Time Seen by Provider: 08/22/17 11:08 TRAVEL OUTSIDE OF THE [place] IN LAST 30 DAYS: No - HPI Patient complains to provider of: Skin wounds on the face Notes: Patient coming in for evaluation of wounds on the face. Patient states this is a recurring condition these wounds have been present for possibly greater than a week. 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 Patient states now wounds have developed and is concerned that they are infected. Denies fevers chills nausea vomiting diarrhea. Upon my evaluation patient has multiple lesions of the face multiple small lesions however the most concerning patient has red excoriated area with blistering on the left side of face up to but not involving the left orbit. - Related Data Allergies/Adverse Reactions: No Known Allergies Allergy (Verified 08/22/17 10:40) Past Medical History - Social History Smoking Status: Unknown if Ever Smoked Family History: CVA, Malignancy - Lung cancer and leukemia, Other - Alcoholism, dementia. Schizophrenia in his son but no one else in the family. Patient has suicidal ideation: No Patient has homicidal ideation: No - Past Medical History Cardiac Medical History: Reports: Hx Hypertension - Hypertension is untreated, patient does not have a PCP., Hx Pulmonary Embolism - Septic Denies: Hx Congestive Heart Failure, Hx Heart Attack, Hx Hypercholesterolemia Pulmonary Medical History: Denies: Hx Asthma, Hx COPD Endocrine Medical History: Denies: Hx Diabetes Mellitus Type 1, Hx Diabetes Mellitus Type 2, Hx Hyperthyroidism, Hx Hypothyroidism Renal/ Medical History: Denies: Hx Peritoneal Dialysis GI Medical History: Denies: Hx Cirrhosis, Hx Gastroesophageal Reflux Disease, Hx Hepatitis Musculoskeltal Medical History: Reports Hx Arthritis Psychiatric Medical History: Reports: Hx Depression Infectious Medical History: Denies: Hx Hepatitis Past Surgical History: Reports: Hx Herniorrhaphy - Hernia repair and hydrocele repair at age of 9., Hx Orthopedic Surgery - back surgery 2006 - Immunizations Hx Diphtheria, Pertussis, Tetanus Vaccination: No Review of Systems - Review of Systems Constitutional: No symptoms reported EENT: No symptoms reported Cardiovascular: No symptoms reported Respiratory: No symptoms reported Gastrointestinal: No symptoms reported Genitourinary: No symptoms reported Male Genitourinary: No symptoms reported Musculoskeletal: No symptoms reported Skin: Rash Hematologic/Lymphatic: No symptoms reported Neurological/Psychological: No symptoms reported -: Yes All other systems reviewed and negative Physical Exam - Vital signs Vitals: Temp Pulse Resp BP Pulse Ox 98.8 F 66 16 129/72 H 98 08/22/17 10:36 08/22/17 10:36 08/22/17 10:36 08/22/17 10:36 08/22/17 10:36 Interpretation: Normal - General General appearance: Appears well, Alert - HEENT Head: Normocephalic, Atraumatic Eyes: Normal Conjunctiva: Normal Cornea: Normal Eyelashes: Normal Pupils: PERRL - Respiratory Respiratory status: No respiratory distress Chest status: Nontender Breath sounds: Normal Chest palpation: Normal - Cardiovascular Rhythm: Regular Heart sounds: Normal auscultation Murmur: No - Abdominal Inspection: Normal Distension: No distension Bowel sounds: Normal Tenderness: Nontender Organomegaly: No organomegaly - Back Back: Normal, Nontender - Extremities General upper extremity: Normal inspection, Nontender, Normal color, Normal ROM , Normal temperature General lower extremity: Normal inspection, Nontender, Normal color, Normal ROM , Normal temperature, Normal weight bearing. No: Minoo's sign - Neurological Neuro grossly intact: Yes Cognition: Normal Orientation: AAOx4 Benji Coma Scale Eye Opening: Spontaneous [place] Coma Scale Verbal: Oriented Benji Coma Scale Motor: Obeys Commands Benji Coma Scale Total: 15 Speech: Normal Motor strength normal: LUE, RUE, LLE, RLE Sensory: Normal - Psychological Associated symptoms: Normal affect, Normal mood - Skin Skin Temperature: Warm Skin Moisture: Dry Skin Color: Normal Notes: Patient has multiple wounds of the face right side has small areas that are not confluently each other surgical and oval in nature there is one being approximately centimeter by centimeter across. There are multiple lesions however none of these look to be infected. There is no blistering but there is scabbing and crusting. Patient has a large area linear on the left forehead going to the left orbit but not involving the left orbit with blistering and scabbing. It is also notable lesion going on the margin of the left zygomatic arch again blistering scabbing. Patient states pain with these lesions burning in nature. There is no signs of overt cellulitis involved with any of these lesions of the face. Course - Re-evaluation Re-evalutation: 08/22/17 12:37 Unclear etiology, most concerning is shingles I did evaluate the patient's iron with the slit lamp no dendritic lesions seen. Will treat patient for shingles start the patient on acyclovir prednisone and Ultram for pain. Patient was encouraged to follow-up with his spreader operator automatic. - Vital Signs Vital signs: Temp Pulse Resp BP Pulse Ox 98.8 F 66 16 129/72 H 98 08/22/17 10:36 08/22/17 10:36 08/22/17 10:36 08/22/17 10:36 08/22/17 10:36 Procedures - Eye Procedure Left Fluorescein applied: Left Notes: 08/22/17 12:38 No dendritic lesion seen. No fluorescein uptake seen. Discharge - Discharge Clinical Impression: Shingles Qualifiers: Herpes zoster complications: without complications Qualified Code(s): B02.9 - Zoster without complications Condition: Good Instructions: Shingles ([facility]) Additional Instructions: The rash today looks to be associated with shingles. Examination of the right does not reveal any lesions that would suggest that the shingles virus is in her eye. Please continue to cover wounds with the Bactroban prescribed. Take other medications as prescribed return to the ER symptoms worsen. Follow-up with your doctor in 3-5 days. Prescriptions: Acyclovir [Acyclovir 400 mg Tablet] 400 mg PO 5XD 10 Days tablet Mupirocin Calcium [Bactroban 2% Cream 15 gm] 1 applic TP DAILY PRN #1 tube PRN Reason: Prednisone [Deltasone] 60 mg PO DAILY #24 tablet Tramadol HCl [Ultram 50 mg Tablet] 50 mg PO ASDIR PRN #20 tablet PRN Reason: Referrals: PORTIA MARRERO MD [[facility]ITY [facility]ED STAFF] - Follow up as needed
== END 2017-08-22 11:28 | disposition home or self-care (01) ==
LOC: ER 10:26
DX: B02.9 Zoster without complications (principal)
CPT/HCPCS: 99283; A9270 ×2; J7512

== ENCOUNTER 2017-10-16 13:39 | Emergency (ER) | payer MEDICARE, MEDICAID ==
[2017-10-16 14:15] VITALS: BP 116/60
--- NOTE | 2017-10-16 15:36 | ER Document Report ---
HPI - HPI Pain Level: 4 Notes: Patient is a 47-year-old male with a h/o HTN who presents the ED complaining of nasal congestion/discharge, subjective fever, body ache, dry nonproductive cough that began yesterday. Patient states that he is still eating and drinking without any difficulties. He is urinating normally and having normal bowel movements. Patient has been using Tylenol Motrin for symptoms. He denies any recent travel. He denies any drug allergies. No other concerns or complaints at this time. Denies any headache, head injury, neck pain, sore throat, chest pain, palpitations, syncope, shortness of breath, wheeze, dyspnea , abdominal pain, nausea/vomiting/diarrhea, urinary retention, dysuria, hematuria, loss of control of bowel or bladder, numbness/tingling, saddle anesthesia, muscle paralysis/weakness, or rash. Pt did not get a flu shot this year. - ROS Notes: REVIEW OF SYSTEMS: CONSTITUTIONAL : see hpi EENT: see hpi CARDIOVASCULAR: Denies chest pain. Denies palpitations or racing or irregular heart beat. Denies ankle edema. RESPIRATORY: see hpi. Denies shortness of breath, difficulty breathing, or wheezing. GASTROINTESTINAL: Denies abdominal pain or distention. Denies nausea, vomiting , or diarrhea. Denies blood in vomitus, stools, or per rectum. Denies black, tarry stools. Denies constipation. GENITOURINARY: Denies difficulty urinating, painful urination, burning, frequency, blood in urine, or discharge. MUSCULOSKELETAL: Denies back or neck pain or stiffness. Denies joint pain or swelling. SKIN: Denies rash, lesions or sores. NEUROLOGICAL: Denies confusion or altered mental status. Denies passing out or loss of consciousness. Denies dizziness or lightheadedness. Denies headache. Denies weakness or paralysis or loss of use of either side. Denies problems with gait or speech. Denies sensory loss, numbness, or tingling. Denies seizures. ALL OTHER SYSTEMS REVIEWED AND NEGATIVE. Dictation was performed using [employer] voice recognition software - REPRODUCTIVE Reproductive: DENIES: : Past Medical History - Social History Smoking Status: Current Every Day Smoker Family History: Malignancy, CVA, Other - Past Medical History Cardiac Medical History: Reports: Hx Hypertension - Hypertension is untreated, patient does not have a PCP., Hx Pulmonary Embolism - Septic Denies: Hx Congestive Heart Failure, Hx Heart Attack, Hx Hypercholesterolemia Pulmonary Medical History: Denies: Hx Asthma, Hx COPD Endocrine Medical History: Denies: Hx Diabetes Mellitus Type 1, Hx Diabetes Mellitus Type 2, Hx Hyperthyroidism, Hx Hypothyroidism Renal/ Medical History: Denies: Hx Peritoneal Dialysis GI Medical History: Denies: Hx Cirrhosis, Hx Gastroesophageal Reflux Disease, Hx Hepatitis Musculoskeltal Medical History: Reports Hx Arthritis Psychiatric Medical History: Reports: Hx Depression Infectious Medical History: Denies: Hx Hepatitis Past Surgical History: Reports: Hx Herniorrhaphy - Hernia repair and hydrocele repair at age of 9., Hx Orthopedic Surgery - back surgery 2006 - Immunizations Hx Diphtheria, Pertussis, Tetanus Vaccination: No Vertical Provider Document - CONSTITUTIONAL Agree With Documented VS: Yes Notes: PHYSICAL EXAMINATION: GENERAL: Well-appearing, well-nourished and in no acute distress. A&Ox4 HEAD: Atraumatic, normocephalic. EYES: Pupils equal round and reactive to light, extraocular movements intact, sclera anicteric, conjunctiva are normal. ENT: EAC clear b/l. TM's intact b/l without erythema, fluid, or perforation. Nares patent and with clear discharge. oropharynx mild erythema without exudates. No tonsilar hypertrophy & without erythema or exudate. No palatine shift. Uvula midline. No tongue protrusion. No drooling, hoarseness, or airway compromise. Moist mucous membranes. No sinus tenderness. NECK: Normal range of motion, supple without lymphadenopathy. No rigidity/ meningismus. LUNGS: Breath sounds clear to auscultation bilaterally and equal. No wheezes rales or rhonchi. HEART: Regular rate and rhythm without murmurs, rubs, gallops. ABDOMEN: Soft, nontender, nondistended abdomen. No guarding, no rebound. No masses appreciated. Normal bowel sounds present. No CVA tenderness bilaterally. No hepatosplenomegaly. NEUROLOGICAL: Normal speech, normal gait. Normal sensory, motor exams PSYCH: Normal mood, normal affect. SKIN: Warm, Dry, normal turgor, no rashes or lesions noted. - INFECTION CONTROL TRAVEL OUTSIDE OF THE [place] IN LAST 30 DAYS: No - RESPIRATORY O2 Sat by Pulse Oximetry: 96 Course - Re-evaluation Re-evalutation: 10/16/17 15:45 Patient is an afebrile, well-hydrated, 39-year-old male who presents to the ED with acute URI, suspect influenza. Vitals are stable. PE is otherwise unremarkable. No imaging or labs warranted at this time based on H&P and lung sounds are clear consultation bilaterally. Low suspicion for any ACS, PE, pneumothorax, pericarditis, dissection, respiratory compromise, severe dehydration, sepsis, meningitis, or other systemic emergent condition at this time. Patient is aware that his condition can change from initial presentation and he needs to monitor symptoms closely and seek medical attention for any acute changes. Recommend conservative measures for symptoms. Recheck with your PCM in 3-5 days. Return to the ED with any worsening/concerning symptoms otherwise as reviewed in discharge. Patient is in agreement. - Vital Signs Vital signs: Temp Pulse Resp BP Pulse Ox 98.8 F 84 18 116/60 96 10/16/17 14:14 10/16/17 14:14 10/16/17 14:14 10/16/17 14:14 10/16/17 14:14 Discharge - Discharge Clinical Impression: Acute URI Condition: Stable Disposition: HOME, SELF-CARE Instructions: Influenza ([facility]), Upper Respiratory Illness ([facility]) Additional Instructions: Maintain adequate fluid intake Take meds as directed tylenol/ibuprofen as needed over the counter cold medication as needed for symptoms Humidified air may help F/u: with your PCM in 3-5 days for a recheck Return to the ED with any fever, worsening pain, chest pain, palpitations, syncope, worsening [place], neck pain/stiffness, shortness of breath, wheezing, drooling, trouble swallowing/breathing, abdominal pain, n/v/d, rash, or worsening/concerning symptoms otherwise. Forms: Smoking Cessation Education Referrals: [facility] [Provider Group] - Follow up as needed [facility] [Provider Group] - Follow up as needed
== END 2017-10-16 16:01 | disposition home or self-care (01) ==
LOC: ER 13:39
DX: J06.9 Acute upper respiratory infection, unspecified (principal); R05 Cough; R09.89 Other specified symptoms and signs involving the circulatory and respiratory systems; I10 Essential (primary) hypertension; F17.200 Nicotine dependence, unspecified, uncomplicated; Z86.711 Personal history of pulmonary embolism
CPT/HCPCS: 99283

== ENCOUNTER → 2017-12-31 | Outpatient (CLI) | payer MEDICARE, MEDICAID ==
--- NOTE | 2018-01-01 11:18 | RADIOLOGY REPORT (SQ) ---
EXAM DESCRIPTION: U/S THYROID/SFT TISS HD NECK COMPLETED DATE/TIME: 12/31/2017 6:19 pm REASON FOR STUDY: NONTOXIC SINGLE THYROID NODULE E04.1 NONTOXIC SINGLE THYROID NODULE COMPARISON: None. TECHNIQUE: Dynamic and static nath-scale images acquired of the thyroid gland. Selected additional c olor/power Doppler images recorded. All images stored to PACS. LIMITATIONS: None. FINDINGS: RIGHT LOBE: 4.5 cm in greatest diameter Homogeneous echotexture. 2 small thyroid nodules are identified 1 measuring 4 x 2 by 3 mm in diameters and a 2nd measuring 10 x 10 x 4 mm in diameter s LEFT LOBE: 3.6 cm in greatest diameter. Homogeneous echotexture. Small subcentimeter nodule is iden tified measuring 3 x 2 x 4 mm in diameters ISTHMUS: 5.3 mm in thickness Homogeneous echotexture. No cystic or solid masses. OTHER: No other significant finding. IMPRESSION: Small bilateral thyroid nodules as noted above. Other findings as noted above TECHNICAL DOCUMENTATION: JOB ID: [id number] [employer]- All Rights Reserved Reading location - IP/workstation name: DIRECTOR OF SURGERY-[facility]
== END ==
LOC: RAD 16:59
PROVIDERS: ATTEND Family Medicine Geriatric Medicine
DX: E04.1 Nontoxic single thyroid nodule (principal)
CPT/HCPCS: 76536

== ENCOUNTER 2018-01-23 04:00 | Emergency (ER) | payer MEDICARE, MEDICAID ==
--- NOTE | 2018-01-23 05:06 | ER Document Report ---
ED Skin Rash/Insect Bite/Abscs - General Chief Complaint: Abscess Stated Complaint: PAIN UNDER LEFT ARM Time Seen by Provider: 01/23/18 04:40 Mode of Arrival: Ambulatory Information source: Patient Notes: Patient is a 47-year-old male who presents to the emergency department this morning with complaint of 2 day history of possible abscess to his left axilla. Patient states he has been getting grayish drainage from the site and states that he has been running low-grade fevers at home up to 100.8. Patient reports that he has had abscesses in the past that have had to be drained. Patient denies any history of diabetes. Patient is unsure if he has had MRSA in the past. TRAVEL OUTSIDE OF THE [place] IN LAST 30 DAYS: No - Related Data Allergies/Adverse Reactions: No Known Allergies Allergy (Verified 10/16/17 13:41) Past Medical History - General Information source: Patient - Social History Smoking Status: Former Smoker Chew tobacco use (# tins/day): No Frequency of alcohol use: None Drug Abuse: None Family History: Malignancy, CVA, Other Patient has suicidal ideation: No Patient has homicidal ideation: No - Past Medical History Cardiac Medical History: Reports: Hx Hypertension - Hypertension is untreated, patient does not have a PCP., Hx Pulmonary Embolism - Septic Denies: Hx Congestive Heart Failure, Hx Heart Attack, Hx Hypercholesterolemia Pulmonary Medical History: Denies: Hx Asthma, Hx COPD Endocrine Medical History: Denies: Hx Diabetes Mellitus Type 1, Hx Diabetes Mellitus Type 2, Hx Hyperthyroidism, Hx Hypothyroidism Renal/ Medical History: Denies: Hx Peritoneal Dialysis GI Medical History: Denies: Hx Cirrhosis, Hx Gastroesophageal Reflux Disease, Hx Hepatitis Musculoskeltal Medical History: Reports Hx Arthritis Psychiatric Medical History: Reports: Hx Depression Infectious Medical History: Denies: Hx Hepatitis Past Surgical History: Reports: Hx Herniorrhaphy - Hernia repair and hydrocele repair at age of 9., Hx Orthopedic Surgery - back surgery 2006 - Immunizations Hx Diphtheria, Pertussis, Tetanus Vaccination: No Review of Systems - Review of Systems Constitutional: Fever EENT: No symptoms reported Cardiovascular: No symptoms reported Respiratory: No symptoms reported Gastrointestinal: No symptoms reported Genitourinary: No symptoms reported Male Genitourinary: No symptoms reported Musculoskeletal: No symptoms reported Skin: Other - Abscess to left axilla Hematologic/Lymphatic: No symptoms reported Neurological/Psychological: No symptoms reported Physical Exam - Vital signs Vitals: Temp Pulse Resp BP Pulse Ox 100.7 F H 92 18 152/93 H 97 01/23/18 04:01 01/23/18 04:01 01/23/18 04:01 01/23/18 04:01 01/23/18 04:01 - Notes Notes: PHYSICAL EXAMINATION: GENERAL: Well-appearing, well-nourished and in no acute distress. HEAD: Atraumatic, normocephalic. EYES: Pupils equal round and reactive to light, extraocular movements intact, sclera anicteric, conjunctiva are normal. ENT: Nares patent, oropharynx clear without exudates. Moist mucous membranes. NECK: Normal range of motion, supple without lymphadenopathy LUNGS: Breath sounds clear to auscultation bilaterally and equal. No wheezes rales or rhonchi. HEART: Regular rate and rhythm without murmurs ABDOMEN: Soft, nontender, nondistended abdomen. No guarding, no rebound. No masses appreciated. Musculoskeletal: Normal range of motion, no pitting or edema. No cyanosis. NEUROLOGICAL: Cranial nerves grossly intact. Normal speech, normal gait. Normal sensory, motor exams PSYCH: Normal mood, normal affect. SKIN: Area of erythema that is indurated and fluctuant in left axilla consistent with abscess. Course - Re-evaluation Re-evalutation: Are of concern examined under ultrasound, pocket noted that appears to be pus filled. I&D performed, modest amount of pus and bloody drainage removed. Abscess packed. Strict return precautions given and patient verbalizes understanding. - Vital Signs Vital signs: Temp Pulse Resp BP Pulse Ox 100.7 F H 92 18 121/62 96 01/23/18 04:01 01/23/18 04:01 01/23/18 04:01 01/23/18 06:01 01/23/18 06:01 - Laboratory Result Diagrams: 01/23/18 05:45 01/23/18 05:45 Laboratory results interpreted by me: 01/23/18 05:45 WBC 16.4 H RDW 14.2 H Seg Neutrophils % 82.2 H Lymphocytes % 9.2 L Absolute Neutrophils 13.5 H Procedures - Incision and Drainage Left axilla Time completed: 06:40 Type: Simple Anesthetic type: 1% Lidocaine mL's of anesthetic: 6 Blade size: 11 I&D procedure: Shurclens applied Incision Method: Incision made by scalpel Amount/type of drainage: 4ml Discharge - Discharge Clinical Impression: Abscess Fever Qualifiers: Fever type: unspecified Qualified Code(s): R50.9 - Fever, unspecified Condition: Stable Disposition: HOME, SELF-CARE Instructions: Abscess ([facility]), Cephalexin ([facility]), Post Incision and Drainage, Trimethoprim-Sulfa ([facility]) Additional Instructions: It is very important that you follow-up back here in the emergency department in 48 hours for a wound recheck and to have the packing removed and possibly replaced. Please return sooner if you develop worsening symptoms such as fever uncontrolled by Tylenol, chills, additional pain, redness or streaking from the area. Prescriptions: Cephalexin Monohydrate [Keflex 500 mg Capsule] 500 mg PO Q6H 5 Days #20 capsule Sulfamethoxazole/Trimethoprim [Septra-Ds 800-160 mg Tablet] 1 tab PO BID #14 tablet Referrals: PORTIA MARRERO MD [Primary Care Provider] - Follow up as needed
[2018-01-23] MEDS ORDERED: HYDROMORPHONE HCL INJ/PF 2 MG/ML AMPULE IV ONE (05:19)
[2018-01-23] MEDS ORDERED: KETOROLAC TROMETHAMINE INJ/PF 30 MG/1 ML SDV IV ONE (05:19)
[2018-01-23] MEDS ORDERED: ONDANSETRON HCL INJ/PF 4 MG/2 ML SDV IV ONE (05:20)
[2018-01-23 06:00] LABS: ABSOLUTE BASOPHILS # (AUTO) 0.1 10^3/uL (0.0-0.2); ABSOLUTE EOSINOPHILS # (AUTO) 0.3 10^3/uL (0.0-0.6); ABSOLUTE LYMPHOCYTES (AUTO) 1.5 10^3/uL (0.5-4.7); ABSOLUTE NEUT (AUTO) 13.5 10^3/uL (1.7-8.2); BASOPHILS % (AUTO) 0.9 % (0-2); EOSINOPHILS % (AUTO) 1.7 % (0-6); HEMATOCRIT 41.6 % (37.9-51.0); HEMOGLOBIN 14.6 g/dL (13.5-17.0); LYMPHOCYTES % (AUTO) 9.2 % (13-45); MEAN CORPUSCULAR VOLUME 86 fl (80-97); PLATELET COUNT 254 10^3/uL (150-450); RED BLOOD COUNT 4.86 10^6/uL (4.35-5.55); RED CELL DISTRIBUTION WIDTH 14.2 % (11.5-14.0); SEGMENTED NEUTROPHILS % (AUTO) 82.2 % (42-78); TOTAL CELLS COUNTED % (AUTO) 100 %; WHITE BLOOD COUNT 16.4 10^3/uL (4.0-10.5)
[2018-01-23 06:06] LABS: ANION GAP 10 (5-19); BLOOD UREA NITROGEN 14 mg/dL (7-20); CALCIUM 9.9 mg/dL (8.4-10.2); CARBON DIOXIDE 27 mmol/L (22-30); CHLORIDE 105 mmol/L (98-107); GLUCOSE 107 mg/dL (75-110); POTASSIUM 4.4 mmol/L (3.6-5.0); SODIUM 141.8 mmol/L (137-145)
[2018-01-23] MEDS ORDERED: LIDOCAINE 1% INJ (10 MG/ML) 10 ML MDV INJ ONE (06:21)
[2018-01-23] MEDS ORDERED: SULFAMETHOXAZOLE/TRIMETHOPRIM 800-160 MG TABLET PO ONE (06:54)
[2018-01-23] MEDS ORDERED: CEPHALEXIN 500 MG CAPSULE PO ONE (06:54)
[2018-01-23 07:10] VITALS: BP 143/86
== END 2018-01-23 07:23 | disposition home or self-care (01) ==
LOC: ER 04:00
DX: L02.412 Cutaneous abscess of left axilla (principal); R50.9 Fever, unspecified; Z87.891 Personal history of nicotine dependence; I10 Essential (primary) hypertension
CPT/HCPCS: 99283; 96374; 96375; 36415; 85025; 80048; 10060; A6266; A9270 ×2; J1885; J1170; J2405

== ENCOUNTER 2018-01-23 09:19 | Emergency (ER) | payer MEDICARE, MEDICAID ==
[2018-01-23 09:29] VITALS: BP 95/52
--- NOTE | 2018-01-23 09:36 | ER Document Report ---
HPI - HPI Pain Level: 4 Notes: Patient is a 47-year-old male with a history of hypertension who presents to the ED and request for pain medication status post incision and drainage that he had about 5 hours ago. Patient states he was sent home with 2 antibiotics, but the pain started to really bother him after the lidocaine weared off. He is still eating and drinking without difficulties. He is urinating denies any drug allergies, IV drug use. Patient denies any previous medical history associated with drug abuse or dependency. Denies any headache, recent fever, URI, sore throat, chest pain, palpitations, syncope, cough, shortness of breath , wheeze, dyspnea, abdominal pain, nausea/vomiting/diarrhea, urinary retention, dysuria, hematuria, or rash. - ROS Systems Reviewed and Negative: Yes All other systems reviewed and negative - REPRODUCTIVE Reproductive: DENIES: : Past Medical History - Social History Smoking Status: Never Smoker Family History: Malignancy, CVA, Other - Past Medical History Cardiac Medical History: Reports: Hx Hypertension - Hypertension is untreated, patient does not have a PCP., Hx Pulmonary Embolism - Septic Denies: Hx Congestive Heart Failure, Hx Heart Attack, Hx Hypercholesterolemia Pulmonary Medical History: Denies: Hx Asthma, Hx COPD Endocrine Medical History: Denies: Hx Diabetes Mellitus Type 1, Hx Diabetes Mellitus Type 2, Hx Hyperthyroidism, Hx Hypothyroidism Renal/ Medical History: Denies: Hx Peritoneal Dialysis GI Medical History: Denies: Hx Cirrhosis, Hx Gastroesophageal Reflux Disease, Hx Hepatitis Musculoskeltal Medical History: Reports Hx Arthritis Psychiatric Medical History: Reports: Hx Depression Infectious Medical History: Denies: Hx Hepatitis Past Surgical History: Reports: Hx Herniorrhaphy - Hernia repair and hydrocele repair at age of 9., Hx Orthopedic Surgery - back surgery 2006 - Immunizations Hx Diphtheria, Pertussis, Tetanus Vaccination: No Vertical Provider Document - CONSTITUTIONAL Agree With Documented VS: Yes Notes: PHYSICAL EXAMINATION: GENERAL: Well-appearing, well-nourished and in no acute distress. LUNGS: Breath sounds clear to auscultation bilaterally and equal. No wheezes rales or rhonchi. HEART: Regular rate and rhythm without murmurs, rubs, gallops. Musculoskeletal: FROM to passive/active. Strength 5+/5. Extremities: No cyanosis, clubbing, or edema b/l. Peripheral pulses 2+. Capillary refill less than 3 seconds. NEUROLOGICAL: Normal speech, normal gait. Normal sensory, motor exams PSYCH: Normal mood, normal affect. SKIN: wound dressing in place, bandage appears to be intact w/o any leaking discharge or soaked bandages. No streaks or recurrent of abscess. - INFECTION CONTROL TRAVEL OUTSIDE OF THE [place] IN LAST 30 DAYS: No Course - Re-evaluation Re-evalutation: 01/23/18 09:42 Patient is an afebrile, well-hydrated, 47-year-old male who presents to the ED status post incision and drainage for an abscess complaining of increased pain. Vitals are acceptable. PE is otherwise unremarkable. No other labs or imaging warranted at this time based on H&P. There is no recurrence of the abscess and the incision and drainage with packing appears to be doing its job. Low suspicion for any sepsis, severe dehydration, or other systemic emergent condition at this time. Patient does not have any frequent visits for pain in the emergency department nor does he have inappropriate behavior on the [place] database. I will send him home with a [employer] dispense pack, but advised that he needs to be continuing Tylenol Motrin as directed. Recheck with your PCM in 2-3 days. Return to the ED with any worsening/concerning symptoms otherwise as reviewed discharge. Wound instruction as reviewed at your previous visit. Patient is in agreement. - Vital Signs Vital signs: Temp Pulse Resp BP Pulse Ox 98.9 F 86 95/52 L 97 01/23/18 09:28 01/23/18 09:28 01/23/18 09:28 01/23/18 09:28 Discharge - Discharge Clinical Impression: Abscess Condition: Stable Disposition: HOME, SELF-CARE Instructions: Oral Narcotic Medication ([facility]) Additional Instructions: Wound dressing changes as reviewed at your visit a few hours ago. Otherwise: Keep the skin clean Wash with soap and water Tylenol/ibuprofen if needed Triple antibiotic ointment daily Take medication as directed Monitor for any worsening symptoms Recheck with your PCM in 2-3 days Consider consult with General Surgeon for ongoing/worsening symptoms Return to the ED with any worsening symptoms and/or development of fever, headache, chest pain, palpitations, syncope, shortness of breath, trouble breathing, abdominal pain, n/v/d, abscess, purulent discharge, red streaks, worsening swelling, or other worsening symptoms that are concerning to you. Referrals: JONNY MOSHER MD [ACTIVE STAFF] - Follow up as needed
[2018-01-23] MEDS ORDERED: HYDROCODONE/ACETAMINOPHEN 5-325 MG (6 TAB/ER DISP) PO PRN (09:38)
== END 2018-01-23 09:59 | disposition home or self-care (01) ==
LOC: ER 09:19
DX: L02.91 Cutaneous abscess, unspecified (principal); Z98.890 Other specified postprocedural states; I10 Essential (primary) hypertension
CPT/HCPCS: 99282; A9270

== ENCOUNTER → 2018-01-27 | Outpatient (CLI) | payer MEDICARE, MEDICAID ==
[~2018-01-27] MED LIST: ALBUTEROL SULFATE 0.083% NEB 2.5 MG/3 ML AMPUL NEB ONE
--- NOTE | 2018-02-01 09:19 | PULMONARY FUNCTION TEST ---
DATE OF SERVICE: 01/27/2018 THE VITAL CAPACITY IS SLIGHTLY DECREASED. THE EXPIRATORY FLOW RATES ARE SLIGHTLY DECREASED. THE FEV1/VC IS 80%, PREDICTED: 83% LUNG VOLUMES BY NITROGEN WASH OUT METHOD SHOW: TLC IS 91% OF PREDICTED FRC IS 104% OF PREDICTED RV IS 116% OF PREDICTED THE DLCO IS 19.9, 80% OF PREDICTED. THE RV/TLC RATIO IS 42% PREDICTED 33% IMPRESSION: BOTH THE PRE- AND POST-BRONCHODILATION SPIROGRAMS WERE POORLY PERFORMED AND ARE NOT RELIABLY INTERPRETABLE. THE INSPIRATORY LIMBS OF THE BOTH THE PRE- AND POST-BRONCHODILATION F-V LOOPS WERE TECHNICALLY POOR. LUNG VOLUMES ARE NORMAL DIFFUSING CAPACITY IS SLIGHTLY DECREASED. CC: PORTIA MARRERO MD > GÉNESIS
== END ==
LOC: RT 10:26
PROVIDERS: ATTEND Family Medicine Geriatric Medicine
DX: J44.9 Chronic obstructive pulmonary disease, unspecified (principal); Z72.0 Tobacco use
CPT/HCPCS: 94729 ×2; 94727 ×2; 94060 ×2; A9270

== ENCOUNTER 2018-02-14 14:54 | Emergency (ER) | payer MEDICARE, MEDICAID ==
[2018-02-14 15:02] VITALS: BP 149/85
[2018-02-14] MEDS ORDERED: CLINDAMYCIN HCL 150 MG CAPSULE PO ONE (15:34)
--- NOTE | 2018-02-14 15:40 | ER Document Report ---
ED Medical Screen (RME) - General Chief Complaint: Rash Stated Complaint: RASH Time Seen by Provider: 02/14/18 15:24 Mode of Arrival: Ambulatory Information source: Patient Notes: This is a 47-year-old man with a history PE (on Xarelto), high blood pressure, recurring cellulitis, with sepsis in the past. Patient presents with rash on the face. He has previously been evaluated for recurrent cellulitis of the face he denies any fevers. He denies any pain. He states that it seems to have acted up over the last few days. He is concerned that he may have an infestation at his house. And he is wondering whether the skin reactions could be from mites. TRAVEL OUTSIDE OF THE [place] IN LAST 30 DAYS: No - HPI Onset: Last week Onset/Duration: Gradual Quality of pain: No pain Severity: None Pain Level: Denies Associated Symptoms: denies: Chest pain, Headache, Shortness of breath Exacerbated by: Denies Relieved by: Denies Similar symptoms previously: No Recently seen / treated by doctor: No - Related Data Smoking: Non-smoker Frequency of alcohol use: None Drug Abuse: None Allergies/Adverse Reactions: No Known Allergies Allergy (Verified 02/14/18 15:18) Past Medical History - General Information source: Patient - Social History Cigarette use (# per day): No Chew tobacco use (# tins/day): No Frequency of alcohol use: None Drug Abuse: None Lives with: Family Family history: None - Past Medical History Cardiac Medical History: Reports: Hx Hypertension - Hypertension is untreated, patient does not have a PCP., Hx Pulmonary Embolism - Septic Denies: Hx Congestive Heart Failure, Hx Heart Attack, Hx Hypercholesterolemia Pulmonary Medical History: Denies: Hx Asthma, Hx COPD Endocrine Medical History: Denies: Hx Diabetes Mellitus Type 1, Hx Diabetes Mellitus Type 2, Hx Hyperthyroidism, Hx Hypothyroidism Renal/ Medical History: Denies: Hx Peritoneal Dialysis GI Medical History: Denies: Hx Cirrhosis, Hx Gastroesophageal Reflux Disease, Hx Hepatitis Musculoskeltal Medical History: Reports Hx Arthritis Psychiatric Medical History: Reports: Hx Depression Infectious Medical History: Denies: Hx Hepatitis Past Surgical History: Reports: Hx Herniorrhaphy - Hernia repair and hydrocele repair at age of 9., Hx Orthopedic Surgery - back surgery 2006 - Immunizations Hx Diphtheria, Pertussis, Tetanus Vaccination: No Review of Systems - Review of Systems Constitutional: denies: Chills, Fever EENT: No symptoms reported Cardiovascular: No symptoms reported Respiratory: No symptoms reported Gastrointestinal: No symptoms reported Genitourinary: No symptoms reported Male Genitourinary: No symptoms reported Musculoskeletal: No symptoms reported Skin: See HPI Hematologic/Lymphatic: No symptoms reported Neurological/Psychological: No symptoms reported Physical Exam - Vital signs Vitals: Temp Pulse Resp BP Pulse Ox 99.2 F 79 18 149/85 H 97 02/14/18 15:00 02/14/18 15:00 02/14/18 15:00 02/14/18 15:00 02/14/18 15:00 Notes: Physical exam: GENERAL: 47-year-old man who is alert and oriented 3, no acute distress. Patient is afebrile. HEAD: Atraumatic, normocephalic. Face: The patient does have erythema to the right cheek and underneath the right eye. He has some blotchiness on the left side of the face. This does not meet an exact dermatomal pattern (he has been treated for shingles in the past). There is no obvious fluid collection. There is no tenderness to palpation. EYES: Pupils equal round and reactive to light, extraocular movements intact, sclera anicteric, conjunctiva are normal. There is no obvious orbital cellulitis. ENT: TMs normal, nares patent, oropharynx clear without exudates. Moist mucous membranes. NECK: Normal range of motion, supple without obvious mass or JVD. LUNGS: Breath sounds clear to auscultation bilaterally and equal. No wheezes rales or rhonchi. HEART: Regular rate and rhythm without murmurs, rubs or gallops. ABDOMEN: Soft, normoactive bowel sounds. No tenderness to palpation. No guarding, no rebound. No masses appreciated. EXTREMITIES: Normal range of motion, no pitting or edema. No clubbing or cyanosis. NEUROLOGICAL: Cranial nerves II through XII grossly intact. Normal speech, moving all extremities. PSYCH: Normal mood, normal affect. SKIN: Warm, Dry, normal turgor, no rashes or lesions noted. Course - Re-evaluation Re-evalutation: 02/14/18 15:37 Patient looks relatively good at this time. He is afebrile. He has been treated in the past for recurrent facial cellulitis. On one occasion he was treated for shingles to the face but there is no dermatomal pattern today. He does have a history of sepsis, so I would like to cover him with an antibiotic. He does not appear septic at this time. He is not in any distress. He is concerned that this may be from some sort of infestation. I do not see any evidence of mites or fleas. I will start him on some oral antibiotics and have follow-up with his primary care doctor. - Vital Signs Vital signs: Temp Pulse Resp BP Pulse Ox 99.2 F 79 18 149/85 H 97 02/14/18 15:00 02/14/18 15:00 02/14/18 15:00 02/14/18 15:00 02/14/18 15:00 Doctor's Discharge - Discharge Clinical Impression: Facial cellulitis Condition: Stable Disposition: HOME, SELF-CARE Instructions: Cellulitis ([facility]) Additional Instructions: As we discussed I do want to treat this with an antibiotic. I would like you to follow-up with a legal support assistant. I put the number of one below. Follow-up with a legal support assistant: [facility] [place] [id number] [address] , [place], [place] [phone] Additionally, I would like you to follow-up with your primary care doctor: Dr. Mclaughlin Return to the emergency room for any worsening redness, pain, difficulty with vision or any concerns or getting worse. Prescriptions: Clindamycin HCl [Cleocin 300 mg Capsule] 300 mg PO Q6 #28 capsule Referrals: PORTIA MCLAUGHLIN MD [COMMUNITY BASED STAFF] - Follow up in 1 week
== END 2018-02-14 15:42 | disposition home or self-care (01) ==
LOC: ER 14:54
DX: L03.211 Cellulitis of face (principal); R21 Rash and other nonspecific skin eruption; Z79.01 Long term (current) use of anticoagulants; Z86.711 Personal history of pulmonary embolism; I10 Essential (primary) hypertension
CPT/HCPCS: 99282; A9270